=== PATIENT | female | born 1990 | race Hispanic/Latino ===

== ENCOUNTER 2022-04-09 16:44 | Outpatient (CLI) | payer MEDICAID | END 2022-04-09 16:45 | disposition home or self-care (01) | LOC: CSHLAB 16:44 | PROVIDERS: ATTEND Obstetrics & Gynecology | DX: Z01.812 Encounter for preprocedural laboratory examination (principal); N92.0 Excessive and frequent menstruation with regular cycle; N39.3 Stress incontinence (female) (male) | CPT/HCPCS: 84703; 85027; 86850; 86900; 86901 ==

== ENCOUNTER 2022-04-11 06:01 | Day surgery (SDC) | payer OTHER ==
[2022-04-09 15:12] VITALS: BMI 29.5
[2022-04-09 17:31] LABS: Hemoglobin 8.4 g/dL (12.0-15.5); Mean Corpuscular HGB CONC 28.8 g/dL (32.0-36.0); Mean Corpuscular Hemoglobin 18.4 pg (27.0-33.0); Mean Platelet Volume 10.5 fl (7.4-10.4); Platelet Count 424 10x3/uL (150-450); RBC Distribution Width 16.8 % (11.5-14.5); Red Blood Cell (RBC) Count 4.56 10x6/uL (3.90-5.03); White Blood Cell (WBC) Count 8.5 10x3/uL (3.5-10.5)
[2022-04-09 17:35] LABS: BHCG - Serum Negative (NEGATIVE); Pregs Control Background? CLEAR/WHITE (CLR/WHITE); Pregs Control Bar Appear? YES (CONTROL BAR)
[2022-04-11] MEDS ORDERED: Gabapentin 300 MG CAP ONE (06:28)
[2022-04-11] MEDS ORDERED: CeleCOXIB 100 MG CAP ONE (06:29)
[2022-04-11] MEDS ORDERED: Famotidine/PF 20 mg/2ml Vial ONE (06:29)
[2022-04-11] MEDS ORDERED: Midazolam HCl 2 mg/2 ml Vial ONE ×2 (06:31→07:25)
[2022-04-11] MEDS ORDERED: Ondansetron PF 4 MG/2 ML Vial ONE (06:31)
[2022-04-11] MEDS ORDERED: Lidocaine 1% PF 5 ML VIAL ONE (06:31)
[2022-04-11] MEDS ORDERED: Glycopyrrolate 0.2 MG/ML 5 ML SYRINGE ONE (06:31)
[2022-04-11] MEDS ORDERED: Rocuronium Bromide 10 MG/ML (10ML VIAL) ONE (06:31)
[2022-04-11] MEDS ORDERED: PROPOFOL 20 ML ONE (06:31)
[2022-04-11] MEDS ORDERED: Ketorolac Tromethamine 30 MG/ML VIAL ONE (06:32)
[2022-04-11] MEDS ORDERED: Fentanyl 100 MCG/2 ML VIAL ONE ×2 (06:32→06:33)
[2022-04-11] MEDS ORDERED: EPINEPHrine 1 MG/ML AMP ONE (06:34)
[2022-04-11] MEDS ORDERED: Bupivacaine PF 0.5% 30 ML VIAL ONE (06:35)
[2022-04-11] MEDS ORDERED: Methylene Blue 50 MG/10 ML AMPUL ONE (06:35)
[2022-04-11] MEDS ORDERED: Lidocaine 1% w/Epinephrine 1:100K 30 ML VIAL ONE (06:35)
[2022-04-11] MEDS ORDERED: CEFAZOLIN 2 GM VIAL ONE (07:06)
[2022-04-11 08:13] LABS: SARS-CoV-2 NAA Rapid Test Not Detected (NotDetected)
[2022-04-11] MEDS ORDERED: traMADol HCl 50 MG TAB PO PRN (09:05)
[2022-04-11] MEDS ORDERED: Ondansetron PF 4 MG/2 ML Vial IVP PRN (09:05)
[2022-04-11] MEDS ORDERED: diphenhydrAMINE 25 MG CAP PO PRN (09:05)
[2022-04-11] MEDS ORDERED: Simethicone Chewable 80 MG TAB PO PRN (09:05)
[2022-04-11] MEDS ORDERED: HYDROcodone/Acetaminophen 5/325 mg Tablet PO PRN (09:05)
[2022-04-11] MEDS ORDERED: Fentanyl 100 MCG/2 ML VIAL SLOW IVP PRN (09:05)
[2022-04-11] MEDS ORDERED: Zolpidem Tartrate 5 MG TAB PO PRN (09:05)
[2022-04-11] MEDS ORDERED: Promethazine HCl 25 MG/ML VIAL IM PRN (09:05)
[2022-04-11] MEDS ORDERED: Bisacodyl 10 MG SUPP PR PRN (09:05)
[2022-04-11] MEDS: Ketorolac Tromethamine 30 MG/ML VIAL IVP SCH ×2 (12:16→18:30)
[2022-04-11] MEDS: HYDROcodone/Acetaminophen 5/325 mg Tablet PO PRN ×2 (15:12→20:41)
[2022-04-12] MEDS: Ketorolac Tromethamine 30 MG/ML VIAL IVP SCH ×2 (04:18→08:54)
[2022-04-12] MEDS: HYDROcodone/Acetaminophen 5/325 mg Tablet PO PRN ×3 (04:19→16:04)
[2022-04-12 05:17] LABS: Hemoglobin 7.2 g/dL (12.0-15.5); Mean Corpuscular Hemoglobin 17.8 pg (27.0-33.0); Mean Corpuscular Volume 63.5 fl (81.6-98.3); Platelet Count 393 10x3/uL (150-450); RBC Distribution Width 16.5 % (11.5-14.5); Red Blood Cell (RBC) Count 4.05 10x6/uL (3.90-5.03); White Blood Cell (WBC) Count 18.3 10x3/uL (3.5-10.5)
[2022-04-12 11:46] VITALS: BP 100/55; TEMP 98
[2022-04-16] MEDS ORDERED: Ibuprofen 800 MG TAB PO SCH (14:00)
== END 2022-04-12 16:05 | disposition home or self-care (01) ==
LOC: CSHSDC 06:01 → CSHPED 09:05 → CSHSDC 04-12 16:05
PROVIDERS: ATTEND Obstetrics & Gynecology
PROC: 0UT74ZZ Resection of Bilateral Fallopian Tubes, Percutaneous Endoscopic Approach (ICD-10-PCS; principal; 2022-04-11)
PROC: 0UT94ZZ Resection of Uterus, Percutaneous Endoscopic Approach (ICD-10-PCS; principal; 2022-04-11)
PROC: 0UT14ZZ Resection of Left Ovary, Percutaneous Endoscopic Approach (ICD-10-PCS; principal; 2022-04-11)
PROC: 0TSD4ZZ Reposition Urethra, Percutaneous Endoscopic Approach (ICD-10-PCS; principal; 2022-04-11)
DX: D27.1 Benign neoplasm of left ovary (principal); N80.03 Adenomyosis of the uterus; N92.0 Excessive and frequent menstruation with regular cycle; N39.3 Stress incontinence (female) (male); D64.9 Anemia, unspecified; Z20.822 Contact with and (suspected) exposure to COVID-19
CPT/HCPCS: 36415; 36416; 84703; 85027; 86850; 86900; 86901; 88307; C1781; C1889; J0171; J1885; J2250; J2405; J2704; J3010; Q9968; S0020; S0028; U0002